=== PATIENT | female | born 1945 | race Caucasian/White ===

== ENCOUNTER → 2019-07-23 12:41 | Outpatient (CLI) | payer MEDICARE, SELFPAY ==
--- NOTE | ~2019-07-23 | US_ITS ---
EXAMINATION: US thyroid EXAM DATE: 07/23/2019 13:02 INDICATION: Abnormal blood chemistry. TECHNIQUE: Multiple grayscale and Doppler images of the thyroid were obtained (by a technologist who performed the scan) and subsequently reviewed. Individual nodules may be reported using TI-RADS syst em as designated by the 2017 ACR White Paper TI-RADS committee. There is no prior study for comparis on. FINDINGS: The right thyroid lobe measures 3.7 x 0.9 x 1.1 cm, the left measuring 3.3 x 0.9 x 0.8 cm. There is a nodule in the lower pole of the right thyroid measuring 8 x 7 x 5 millimeters, solid (2 po ints), hyperechoic (1 point), wider than tall, smooth margin, without echogenic foci, category TR3 fo r this nodule. IMPRESSION: Small hyperechoic right thyroid nodule. Return to clinical follow-up and if palpable abno rmality develops repeat ultrasound. Reviewed, dictated and finalized at location B. PTION CLERK IMPRESSION: Small hyperechoic right thyroid nodule. Return to clinical follow-u p and if palpable abnormality develops repeat ultrasound.
== END ==
PROVIDERS: PCP Family Medicine; Visit Provider Family Medicine
DX: R79.89 Other specified abnormal findings of blood chemistry (principal); E04.1 Nontoxic single thyroid nodule
CPT/HCPCS: 76536